=== PATIENT | male | born 1990 | race Caucasian/White ===

== ENCOUNTER → 2023-11-11 13:23 | Outpatient (REF) | payer BC, SELFPAY | LOC: RAD 13:23 | PROVIDERS: ATTENDING PHYSICIAN Family Medicine | DX: R11.2 Nausea with vomiting, unspecified (principal); R10.11 Right upper quadrant pain | CPT/HCPCS: 76700 ==

== ENCOUNTER → 2023-12-02 09:09 | Outpatient (REF) | payer BC, SELFPAY | LOC: PAVMRI 09:09 | PROVIDERS: ATTENDING PHYSICIAN Family Medicine | DX: R51.9 Headache, unspecified (principal); R42 Dizziness and giddiness; R11.2 Nausea with vomiting, unspecified | CPT/HCPCS: 70553; A9575 ==

== ENCOUNTER → 2024-02-06 06:37 | Day surgery (SDC) | payer OTHER, SELFPAY | LOC: GI 06:37 | PROVIDERS: ATTENDING PHYSICIAN Internal Medicine | DX: R19.7 Diarrhea, unspecified (principal); K64.9 Unspecified hemorrhoids; R11.2 Nausea with vomiting, unspecified; K44.9 Diaphragmatic hernia without obstruction or gangrene; K22.89 Other specified disease of esophagus; K29.50 Unspecified chronic gastritis without bleeding; F17.210 Nicotine dependence, cigarettes, uncomplicated; K63.9 Disease of intestine, unspecified | CPT/HCPCS: 45380; 43239; 88305; 88342 ==

== ENCOUNTER 2024-04-24 13:38 | Emergency (ER) | payer OTHER, SELFPAY ==
[2024-04-24 13:46] VITALS: BP 175/115
[2024-04-24 14:03] VITALS: BP 162/110
--- NOTE | 2024-04-24 14:30 | ED.GENMED ---
History of Present Illness
<Angeles Sevilla PA-C - Last Filed: 04/24/24 18:51>
General
Chief Complaint: Blood Pressure Problem
Source: patient and family
Time Seen by Provider: 04/24/24 14:15
History of Present Illness
History of Present Illness:
33yoM with a history of hypertension and anxiety presenting with his mother for evaluation of multiple complaints. Patient has been feeling unwell since September of this year. He has multiple symptoms including dizziness, fatigue, night sweats,
and elevated blood pressures. Patient describes the dizziness as feeling like he is on a carousel. Patient has been seen by multiple specialist for the symptoms including ENT, neurology, psychiatry, and gastroenterology. He was seen by a new PCP
3 days ago and was given a prescription for labetalol. Patient reports that he did not tolerate this well so he was given a prescription for lisinopril 5 mg. He was sent for outpatient blood work today. He went to the lab to have this done but
mother reports that his 'eyes rolled back' and he thought he was going to pass out so they came to the emergency department. There was no loss of consciousness. Patient is extremely frustrated as no one seems to be able to give him any answers
regarding his symptoms.
Past History
<Angeles Sevilla PA-C - Last Filed: 04/24/24 18:51>
Past History
ED Past Medical History: Other (Cyclical vomiting)
ED Past Surgical History: None
Social History
Tobacco: Smoker
Alcohol: None
Drug: None
Personal: Single
Living: with family
Employment: Employed
Phy Exam
<Angeles Sevilla PA-C - Last Filed: 04/24/24 18:51>
General Physical Exam
General Presentation: well appearing and no apparent distress
General age: appears stated age
General Skin: warm and dry
General Habitus: normal
General Mental: alert
ENT Exam
ENT Exam: TM's normal and normocephalic
Eye Exam
Eye Exam: PERRL and EOMI
Cardiovascular Exam
Cardiovascular Exam: regular rate/rhythm
Pulmonary Exam
Pulmonary Exam: lungs clear, no respiratory distress, no crackles and no wheezing
Neurological Exam
Neurological Exam: alert and no motor deficits
[place] Coma Scale
Eye Opening: Spontaneous
Verbal Response: Oriented
Motor Response: Obeys Commands
GCS Total Score: 15
Skin Exam
Skin Exam: normal color and warm/dry
Psychiatric Exam
Psychiatric Exam: normal mood/affect
<Steve Zuluaga DO - Last Filed: 04/24/24 18:53>
[place] Coma Scale
GCS Total Score: 15
Course
<Angeles Sevilla PA-C - Last Filed: 04/24/24 18:51>
Orders/Labs/Results
Orders:
Orders
04/24/24 14:33
Electrocardiogram (*1) Urgent
Reason for Study: Vertigo / Dizzy
Cardiac Monitoring- Treatment ONCE
EKG- Treatment ONCE
04/24/24 15:09
Complete Blood Count/With Diff Urgent
Comprehensive Metabolic Panel Urgent
TSH Reflex To Free T4 Urgent
Troponin I Urgent
Abnormal Lab Results
04/24/24
15:09
Abs Immat Gran (auto) 0.1 H 10^3/uL
(0-0.05)
Absolute Monos (auto) 0.7 H 10^3/uL
(0.1-0.6)
Immature Gran % 0.7 H %
(0-0.5)
Calcium 10.3 H mg/dl
(8.4-10.2)
ALT 104 H U/L
(0-50)
04/24/24 15:09
04/24/24 15:09
Vital Signs
Initial and Last Documented VS:
Initial Vital Signs
Temp Pulse Resp BP Pulse Ox
98.3 F 80 16 175/115 98
04/24/24 13:46 04/24/24 13:46 04/24/24 13:46 04/24/24 13:46 04/24/24 13:46
Last Documented Vital Signs
Temp Pulse Resp BP Pulse Ox
98.1 F 65 16 156/107 97
04/24/24 17:28 04/24/24 17:28 04/24/24 17:28 04/24/24 17:28 04/24/24 17:28
<Steve Zuluaga, DO - Last Filed: 04/24/24 18:53>
Orders/Labs/Results
Orders:
Orders
04/24/24 14:33
Electrocardiogram (*1) Urgent
Reason for Study: Vertigo / Dizzy
Cardiac Monitoring- Treatment ONCE
EKG- Treatment ONCE
04/24/24 15:09
Complete Blood Count/With Diff Urgent
Comprehensive Metabolic Panel Urgent
TSH Reflex To Free T4 Urgent
Troponin I Urgent
Abnormal Lab Results
04/24/24
15:09
Abs Immat Gran (auto) 0.1 H 10^3/uL
(0-0.05)
Absolute Monos (auto) 0.7 H 10^3/uL
(0.1-0.6)
Immature Gran % 0.7 H %
(0-0.5)
Calcium 10.3 H mg/dl
(8.4-10.2)
ALT 104 H U/L
(0-50)
04/24/24 15:09
04/24/24 15:09
Vital Signs
Initial and Last Documented VS:
Initial Vital Signs
Temp Pulse Resp BP Pulse Ox
98.3 F 80 16 175/115 98
04/24/24 13:46 04/24/24 13:46 04/24/24 13:46 04/24/24 13:46 04/24/24 13:46
Last Documented Vital Signs
Temp Pulse Resp BP Pulse Ox
98.1 F 65 16 156/107 97
04/24/24 17:28 04/24/24 17:28 04/24/24 17:28 04/24/24 17:28 04/24/24 17:28
<Angeles Sevilla PA-C - Last Filed: 04/24/24 18:51>
MDM/Problems Addressed
Differential Diagnosis Includes:
33yoM here with multiple symptoms including dizziness, fatigue, night sweats x several months. Also having elevated blood pressures. Had a near syncopal episode while at the outpatient lab center today so came to the ED. No true syncope. Blood
pressure is 175/115 on arrival. Remainder of vital stable. He is well-appearing in no acute distress. Exam reassuring. Differential diagnosis includes but is not limited to: Hypertension, hypertensive urgency, hypertensive emergency, anxiety
Initial ED plan: Check cardiac labs and EKG. Will discuss with his PCP.
<Angeles Sevilla PA-C - Last Filed: 04/24/24 18:51>
*EKG
Interpreted by ED Provider?: Yes
EKG Intrepretation Date: 04/24/24
Heart Rate: 64
Rate: normal
Rhythm: sinus
Aspers: normal axis
Interval: normal interval
QRS Pattern: normal QRS
Ischemia: no ischemia
*Critical Care Note
Total Time (30-74mins, 75-104mins- exclusive of procedures): Not Applicable
<Angeles Sevilla PA-C - Last Filed: 04/24/24 18:51>
Update Note
Update Note:
I was able to discuss patient with his PCP, Dr. Senior. Patient is in the process of being worked up for secondary hypertension. He was scheduled to have several tests done today including aldosterone and metanephrine testing. His PCP is
recommending that patient be discharge back to [facility] after his ED evaluation so that he is able to get these tests done today. I discussed these recommendations with the patient and patient would like to have a workup done here in the ED. Will
proceed with labs and EKG as previously ordered.
Labs unremarkable including normal renal function and TSH. EKG shows normal sinus rhythm without ectopy or ischemic changes and troponin is within normal limits. Blood pressure improved to 156/107 without intervention. No evidence of end organ
dysfunction. He is stable for discharge. Patient was prescribed lisinopril 5 mg daily yesterday but he was advised to hold this until he was able to get his outpatient lab work done as this can affect the results. Patient was advised to follow-up
with his PCP. ED return precautions discussed. He was discharged in stable condition with his mother.
ED Attending Note
<Angeles Sevilla PA-C - Last Filed: 04/24/24 18:51>
-
Portions of this chart may have been created with voice recognition software.� Occasional wrong word or��sound alike� substitutions may have occurred due to the inherent limitations of voice recognition software.
Discharge Plan
Departure
Patient Disposition: Home (Routine Discharge)
Date of Disposition: 04/24/24
Time of Disposition: 16:55
Patient with high blood pressure during this ER visit?: Yes
Discharge Problem:
Hypertension
Instructions: High Blood Pressure (DC)
Prescriptions:
No Action
meclizine 25 mg tablet
25 mg PO QID PRN (Reason: dizziness) Qty: 10 0RF
Referrals:
Krysta Scott DO [Family Provider] -
Activity Restrictions/Additional Instructions:
Have your blood work done on Saturday.
Please follow-up with your family doctor on Saturday. Return to the ER with any new or worsening symptoms.
Interventions
Interventions:
*Risk Screen - Suicide Last Done: 04/24/24 13:46
*General Assessment Last Done: 04/24/24 13:46
*Neglect/Abuse Screening Last Done: 04/24/24 13:46
ED- Fall Risk Assessment Last Done: 04/24/24 15:49
*ED COVID-19 Vaccine History Last Done: 04/24/24 15:44
*Nursing Disposition Last Done: 04/24/24 17:28
ED- Cardiac Assessment Last Done: 04/24/24 15:49
ED- Neurological Assessment Last Done: 04/24/24 15:49
ED- Pulmonary Assessment Last Done: 04/24/24 15:49
Discharge Date and Time
Discharge Date/Time: 04/24/24 17:30
Print Language: DOMINICAN
[2024-04-24 15:11] VITALS: BP 143/110
[2024-04-24 15:17] LABS: % Basophils 0.5 % (0-2); % Eosinophils 0.9 % (0-6); % Immature Granulocytes 0.7 % (0-0.5); % Lymphocytes 29.8 % (20.5-51.1); % Monocytes 7.7 % (1.7-9.3); % Neutrophils 60.4 % (42.2-75.2); Absolute Eosinophils 0.1 10^3/uL (0-0.7); Absolute Immature Granulocytes 0.1 10^3/uL (0-0.05); Absolute Lymphocytes 2.6 10^3/uL (1.2-3.4); Absolute Monocytes 0.7 10^3/uL (0.1-0.6); Absolute Neutrophils 5.2 10^3/uL (1.4-6.5); Hematocrit 42.6 % (39.0-52.0); Mean Corp Hgb Conc. 35.2 g/dL (33.0-37.0); Mean Corpuscular Hgb 29.1 pg (27.0-31.0); Mean Corpuscular Volume 82.6 fL (80.0-94.0); Mean Platelet Volume 10.2 fL (7.4-10.4); Nucleated Red Blood Cells % 0 % (-); Platelet Count 252 10^3/uL (130-400); Red Blood Cell Count 5.16 10^6/uL (4.70-6.10); Red Cell Dist. Width 13.3 % (11.5-14.5); White Blood Cell Count 8.7 10^3/uL (4.8-10.8)
[2024-04-24 15:32] VITALS: BMI 32.8
[2024-04-24 15:37] LABS: ALT (SGPT) 104 U/L (0-50); AST (SGOT) 58 U/L (17-59); Albumin 4.9 g/dl (3.5-5.0); Alkaline Phosphatase 62 U/L (38-126); Blood Urea Nitrogen 12 mg/dl (9-20); Calcium 10.3 mg/dl (8.4-10.2); Carbon Dioxide 28 mmol/L (22-30); Chloride 100 mmol/L (98-107); Estimated Creatinine Clearance > 125 ml/min; Glucose 97 mg/dl (70-99); Potassium 4.3 mmol/L (3.5-5.1); Sodium 142 mmol/L (135-145); Total Bilirubin 0.7 mg/dl (0.2-1.3); Total Protein 7.6 g/dl (6.3-8.2); eGFR > 60.00
[2024-04-24 15:43] LABS: Troponin I < 0.012 ng/ml
[2024-04-24 16:00] VITALS: BP 157/107
[2024-04-24 16:07] LABS: TSH Reflex To Free T4 1.54 uIU/ml (0.47-4.68)
[2024-04-24 17:28] VITALS: BP 156/107
== END 2024-04-24 17:30 | disposition home or self-care (01) ==
LOC: EMR 13:38
PROVIDERS: Physician Assistant; EMERGENCY PHYSICIAN Emergency Medicine; FAMILY PHYSICIAN Family Medicine
DX: I10 Essential (primary) hypertension (principal); F41.9 Anxiety disorder, unspecified; F17.200 Nicotine dependence, unspecified, uncomplicated
CPT/HCPCS: 99283; 80053; 84443; 84484; 85025; 93005

== ENCOUNTER → 2024-07-07 09:36 | Outpatient (REF) | payer OTHER, SELFPAY | LOC: RAD 09:36 | PROVIDERS: ATTENDING PHYSICIAN Internal Medicine; FAMILY PHYSICIAN Internal Medicine | DX: K76.9 Liver disease, unspecified (principal); R11.2 Nausea with vomiting, unspecified; K50.919 Crohn's disease, unspecified, with unspecified complications; R19.5 Other fecal abnormalities; R79.89 Other specified abnormal findings of blood chemistry; R61 Generalized hyperhidrosis | CPT/HCPCS: 74177; Q9967 ==

== ENCOUNTER 2024-08-10 07:51 | Outpatient (REF) | payer OTHER, SELFPAY ==
[2024-08-10] VITALS (8 sets, daily range): BP systolic 64–142; BP diastolic 75–85
[2024-08-10 08:34] LABS: Hematocrit 42.5 % (39.0-52.0); Hemoglobin 14.9 g/dL (13.0-18.0); Mean Corp Hgb Conc. 35.1 g/dL (33.0-37.0); Mean Corpuscular Hgb 29.5 pg (27.0-31.0); Mean Corpuscular Volume 84.2 fL (80.0-94.0); Mean Platelet Volume 10.3 fL (7.4-10.4); Platelet Count 222 10^3/uL (130-400); Red Blood Cell Count 5.05 10^6/uL (4.70-6.10); Red Cell Dist. Width 13.5 % (11.5-14.5); White Blood Cell Count 7.9 10^3/uL (4.8-10.8)
[2024-08-10 08:42] LABS: INR 0.95
== END 2024-08-10 12:30 | disposition home or self-care (01) ==
LOC: RADI 07:51
PROVIDERS: ATTENDING PHYSICIAN Internal Medicine
DX: K76.0 Fatty (change of) liver, not elsewhere classified (principal)
CPT/HCPCS: 88307; 36415; 47000; 76942; 85027; 85610; 88313; 99152

== ENCOUNTER → 2024-10-06 14:03 | Outpatient (REF) | payer OTHER, SELFPAY | LOC: DHSLP 14:03 | PROVIDERS: ATTENDING PHYSICIAN Internal Medicine | DX: G47.33 Obstructive sleep apnea (adult) (pediatric) (principal) | CPT/HCPCS: 95810 ==